=== PATIENT | male | born 1975 | race Caucasian/White ===

== ENCOUNTER 2025-10-03 20:02 | Emergency (ER) | payer MEDICAID, SELFPAY ==
[2025-10-03 20:33] VITALS: BP 146/83; PULSE 90; RESP 18; TEMP 36.7; O2SAT 98
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
[2025-10-03] MEDS: NAPROXEN 250 MG TABLET 500 MG PO (22:50)
== END 2025-10-03 23:32 | disposition home or self-care (01) ==
PROVIDERS: Emergency Provider Emergency Medicine; PCP Family Medicine
DX: S10.93XA Contusion of unspecified part of neck, initial encounter (principal); M23.91 Unspecified internal derangement of right knee; S89.91XA Unspecified injury of right lower leg, initial encounter; S09.90XA Unspecified injury of head, initial encounter; V03.90XA Pedestrian on foot injured in collision with car, pick-up truck or van, unspecified whether traffic or nontraffic accident, initial encounter; Y92.410 Unspecified street and highway as the place of occurrence of the external cause
CPT/HCPCS: 70450; 72125; 73562; 99283; A9270